=== PATIENT | male | born 1945 | race Caucasian/White ===

== ENCOUNTER 2017-07-09 12:54 | Emergency (ER) | payer MEDICARE, MEDICAID ==
[~2017-07-09] VITALS: Ht 180.3 cm; Wt 74.8 kg
[~2017-07-09 12:54] MED LIST: ASPI-605; ATOR10TA PO; GLIP5TAB13 PO; SITA100T PO
--- NOTE | 2017-07-09 13:00 | NUR ---
RT GROIN PAIN X 4 DAYS, DENIES HEMATURIA, DYSURIA, TONGUE BLISTER, NAD NOTED, VSS, RESP EVEN AND UNLABORED, PT PUT ON MONITOR. AT BS.
--- NOTE | 2017-07-09 13:07 | NUR ---
URINE SENT TO LAB
[2017-07-09] MEDS ORDERED: TRAMADOL HCL 50 MG TABLET PO ONE (13:30)
[2017-07-09] MEDS ORDERED: KETOROLAC TROMETHAMINE INJ 60 MG/2 ML VIAL IM ONE (13:30)
[2017-07-09] MEDS ORDERED: KETOROLAC TROMETHAMINE INJ 30 MG/ML VIAL ONE (13:34)
[2017-07-09] MEDS ORDERED: TRAMADOL HCL 50 MG TABLET ONE (13:36)
[2017-07-09 13:57] VITALS: BP 127/70
--- NOTE | 2017-07-09 13:58 | NUR ---
Patient discharged to home in stable condition. Written and verbal after care instructions given. Patient verbalizes understanding of instruction. Prescription given.
== END 2017-07-09 14:21 | disposition home or self-care (01) ==
LOC: ER 12:56
DX: M25.551 Pain in right hip (principal); E11.9 Type 2 diabetes mellitus without complications; Z79.84 Long term (current) use of oral hypoglycemic drugs; Z79.82 Long term (current) use of aspirin; Z79.899 Other long term (current) drug therapy
CPT/HCPCS: 73502; 96372; 99284; A4606; J1885; Z7610

== ENCOUNTER 2019-12-27 13:17 | Emergency (ER) | payer MEDICARE, MEDICAID ==
[~2019-12-27] VITALS: Ht 175.3 cm; Wt 74.4 kg
--- NOTE | 2019-12-27 13:25 | NUR ---
BIB FOR R GROIN PAIN RADIATING TO RLE x 5DAYS x WORST TODAY. TO ER BED 10, HOOKED TO MONITOR, CHANGED TO HOSP GOWN, WARM BLANKET PROVIDED, PATIENT AAO x 4, BREATHING EVEN AND UNLABORED, AWAITING MD ARAMBULA.
[2019-12-27] MEDS ORDERED: CLOP75TA15 PO (13:35)
[2019-12-27] MEDS ORDERED: PIOG15TA8 PO (13:35)
[2019-12-27] MEDS ORDERED: EZET10TA32 PO (13:35)
[2019-12-27] MEDS ORDERED: ROSU20TA32 PO (13:35)
[2019-12-27] MEDS ORDERED: METO25TA4 PO (13:35)
[2019-12-27] MEDS ORDERED: GLIP10TA21 PO (13:35)
[2019-12-27] MEDS ORDERED: OMEP20CA15 PO (13:35)
--- NOTE | 2019-12-27 13:53 | NUR ---
DR BRAVO AT BEDSIDE
--- NOTE | 2019-12-27 14:47 | NUR ---
URINE SAMPLE COLLECTED AND SENT TO LAB
[2019-12-27 14:54] LABS: APPEARANCE,URINE Clear (CLEAR); BILIRUBIN,URINE Negative (NEGATIVE); BLOOD, URINE Negative Ery/uL (NEGATIVE); COLOR,URINE Yellow (YELLOW); KETONES,URINE Negative (NEGATIVE); LEUKOCYTE ESTERASE ,URINE Negative (NEGATIVE); NITRITE, URINE Negative (NEGATIVE); PH,URINE 5.5 (5.0-8.0); PROTEIN,URINE Trace mg/dl (NEGATIVE); UGLUCOSE Negative (NEGATIVE); UROBILINOGEN,URINE 0.2 EU/dL (0.2)
[2019-12-27 15:00] LABS: BASOPHILS % (AUTO) 0.5 % (0.0-2.0); EOSINOPHILS % (AUTO) 3.2 % (0.0-6.0); HEMATOCRIT 40 % (39-51); HEMOGLOBIN 12.9 g/dL (13.5-17.5); LYMPHOCYTES # (AUTO) 0.5 /CMM (0.8-4.8); MEAN CORPUSCULAR HGB CONC 32 g/dl (31.0-36.0); MEAN CORPUSCULAR VOLUME 92 fL (80-96); MONOCYTES # (AUTO) 0.7 /CMM (0.1-1.30); MONOCYTES % (AUTO) 10.8 % (2.0-12.0); NEUTROPHILS # (AUTO) 4.7 /CMM (1.8-8.9); NEUTROPHILS % (AUTO) 77.5 % (43.0-81.0); PLATELET COUNT (AUTO) 232 /CMM (150-450); RED BLOOD CELL COUNT(AUTO) 4.39 MIL/uL (4.5-6.0); WHITE BLOOD COUNT (AUTO) 6.1 K/uL (4.3-11.0)
[2019-12-27 15:07] LABS: CALCIUM, SERUM 9.2 mg/dL (8.5-10.1); CARBON DIOXIDE 26 mmol/L (21-32); CHLORIDE 104 mmol/L (98-107); CREATININE 1.9 mg/dL (0.6-1.3); GLUCOSE 197 mg/dL (74-106); POTASSIUM 4.1 mmol/L (3.5-5.1); SODIUM SERUM 137 mmol/L (136-145); UREA NITROGEN, BLOOD 30 mg/dL (7-18)
[2019-12-27 15:13] LABS: ALANINE AMINOTRANSFERASE 21 U/L (12-78); ALBUMIN 3.6 g/dL (3.4-5.0); ALKALINE PHOSPHATASE 69 U/L (46-116); ASPARTATE AMINOTRANSFERASE 14 U/L (15-37); BILIRUBIN,TOTAL 0.3 mg/dL (0.2-1.0)
[2019-12-27] MEDS ORDERED: HYDROCODONE/APAP 5/325MG 1 EACH TABLET PO ONE (17:30)
[2019-12-27] MEDS ORDERED: HYDROCODONE/APAP 5/325MG 1 EACH TABLET ONE (17:38)
--- NOTE | 2019-12-27 17:42 | NUR ---
Cameron padilla in [facility] - 12/27/19 at 1757 by AIDAN bed assigned: [id number]
--- NOTE | 2019-12-27 18:07 | NUR ---
Patient discharged to home with in stable condition. Written and verbal after care instructions given. Patient verbalizes understanding of instruction.
[2019-12-27 18:08] VITALS: BP 125/74
== END 2019-12-27 18:09 | disposition home or self-care (01) ==
LOC: ER 13:22
DX: M25.451 Effusion, right hip (principal); N28.9 Disorder of kidney and ureter, unspecified; M16.11 Unilateral primary osteoarthritis, right hip; E11.9 Type 2 diabetes mellitus without complications; F17.200 Nicotine dependence, unspecified, uncomplicated; Z98.890 Other specified postprocedural states; Z79.899 Other long term (current) drug therapy
CPT/HCPCS: 36415; 72192-TC; 80053-TC; 81000-TC; 85025-TC

== ENCOUNTER 2022-02-10 12:17 | Emergency (ER) | payer MEDICARE, OTHER ==
[~2022-02-10] VITALS: Ht 182.9 cm; Wt 70.3 kg
[~2022-02-10 12:17] MED LIST changes: +CLOP75TA15 PO; +EZET10TA32 PO; +GLIP10TA21 PO; -GLIP5TAB13 PO; +METO25TA4 PO; +OMEP20CA15 PO; +PIOG15TA8 PO; +ROSU20TA32 PO
[2022-02-10 12:25] VITALS: BP 127/66
[2022-02-10] MEDS ORDERED: MELO-105 PO ×2 (13:26→13:27)
--- NOTE | 2022-02-10 13:42 | NUR ---
Patient discharged to home in stable condition. Written and verbal after care instructions given. Patient verbalizes understanding of instruction.
== END 2022-02-10 13:43 | disposition home or self-care (01) ==
LOC: ER 12:24
DX: M25.561 Pain in right knee (principal); E11.9 Type 2 diabetes mellitus without complications; F17.200 Nicotine dependence, unspecified, uncomplicated; Z79.899 Other long term (current) drug therapy
CPT/HCPCS: 73564-TC